=== PATIENT | female | born 1975 | race Caucasian/White ===

== ENCOUNTER 2019-02-16 07:52 | Emergency (ER) | payer MEDICAID ==
[2019-02-16] MEDS: ACETAMINOPHEN 500 MG TAB PO (08:55)
[2019-02-16] MEDS: NAPROXEN 500 MG TAB PO (09:02)
== END 2019-02-16 10:40 | disposition home or self-care (01) ==
LOC: FTE 10:40
DX: M06.9 Rheumatoid arthritis, unspecified (principal); I10 Essential (primary) hypertension
CPT/HCPCS: 29125; 73110-RT; 73130-50; 99284-25